=== PATIENT | male | born 1995 | race Two or more races ===

== ENCOUNTER → 2024-06-24 10:24 | Outpatient (REF) | payer OTHER, SELFPAY | LOC: MRI 10:24 | PROVIDERS: ATTENDING PHYSICIAN Nurse Practitioner | DX: M79.642 Pain in left hand (principal) | CPT/HCPCS: 73218 ==

== ENCOUNTER 2024-10-11 14:53 | Outpatient (RCR) | payer OTHER, SELFPAY | END 2024-10-11 23:59 | disposition home or self-care (01) | LOC: ROT 14:53 | DX: Z47.89 Encounter for other orthopedic aftercare (principal); M66.342 Spontaneous rupture of flexor tendons, left hand; Z73.6 Limitation of activities due to disability; M62.81 Muscle weakness (generalized) | CPT/HCPCS: 97010; 97018; 97110; 97140; 97535; 97760 ==

== ENCOUNTER 2024-10-26 11:16 | Outpatient (RCR) | payer OTHER, SELFPAY | END 2024-10-26 23:59 | disposition home or self-care (01) | LOC: ROT 11:16 | DX: Z47.89 Encounter for other orthopedic aftercare (principal); M66.342 Spontaneous rupture of flexor tendons, left hand; Z73.6 Limitation of activities due to disability; M62.81 Muscle weakness (generalized) | CPT/HCPCS: 97018; 97110; 97140 ==